=== PATIENT | male | born 1980 | race Caucasian/White ===

== ENCOUNTER 2024-01-10 14:56 | Emergency (ER) | payer BC, SELFPAY ==
[2024-01-10 15:08] VITALS: BP 135/84; PULSE 76; TEMP 37.1; O2SAT 100; BMI 19.8
--- NOTE | 2024-01-10 15:25 | CT_ITS ---
The [address] [address] Patient Name: MOHINDER NINA MRN: [id number] date: 1980 Sex: M Assigned Patient Location: ER Current Patient Location: ED.MAIN Accession/Order Number: [id number] Exam Date: 01/10/2024 15:54 Report Date: 01/10/2024 16:22 At the request of: LAUREEN SALVADOR Procedure: CT sinus w con EXAM: CT scan of the sinuses with IV contrast contrast. Dose reduction technique used: Automated exposure control and/or adjustment of the mA and/or kV according to patient size and/or use of iterative reconstruction technique. REASON FOR EXAM: Left retro-orbital pain COMPARISON: None FINDINGS: Prominent bilateral maxillary sinus mucosal thickening/secretions, suggestion of a right maxillary sinus air-fluid level. Mucosal thickening/secretions to a lesser extent throughout the remainder of the paranasal sinuses. Erosive changes/defect to the anterior nasal septum soft tissue thickening along the anterior nasal septum. Mandibular and maxillary periapical abscesses. No orbital inflammatory changes. No soft tissue fluid collection or abscess. No soft tissue emphysema. Remainder unremarkable. CT/CT sinus w con IMPRESSION: 1. Extensive paranasal sinus disease, acute sinusitis cannot be excluded. 2. Erosion/defect of the anterior nasal septum with focal soft tissue thickening anteriorly, correlate clinically. 3. Periapical abscesses. Electronically authenticated by: RICCO GRECO Date: 01/10/2024 16:22
--- NOTE | 2024-01-10 15:26 | ED.GENADUL1 ---
HPI HPI - General Adult General Chief complaint: Headache Stated complaint: HEADACHE Time Seen by Provider: 01/10/24 15:01 Source: patient and family Mode of arrival: walk-in Limitations: no limitations History of Present Illness HPI narrative: Have aPatient here with his family complaining of a left-sided retro-orbital headache. It began on January 07 and she is gradually gotten worse. It was pretty severe yesterday but he toughed it out and decided come in today instead. He has noticed a little bit of crusting of his eyelid but he says his eyeball does not feel like a foreign body sensation and it is not particularly tender. He is not had previous sinus infections. He has a number of bad teeth he thought it might be a dental infection on that side. He does not have a head. He is not diabetic. He is not alcoholic he has no history of immunocompromising diseases and he denies any serious infections in the past. He is not on any antibiotics. Does not have any visual symptomatology such as diplopia or loss of visual field. Does not have pain when he looks left and right. Related Data Home Medications ?Medication ?Instructions ?Recorded ?Confirmed amiodarone 200 mg tablet 200 mg PO DAILY 01/10/24 01/10/24 aspirin 81 mg tablet,delayed 81 mg PO DAILY 01/10/24 01/10/24 release atorvastatin 40 mg tablet 40 mg PO DAILY 01/10/24 01/10/24 lisinopril 10 mg tablet 10 mg PO DAILY 01/10/24 01/10/24 meloxicam 15 mg tablet 15 mg PO DAILY 01/10/24 01/10/24 metoprolol succinate 25 mg 25 mg PO DAILY 01/10/24 01/10/24 tablet,extended release 24 hr Allergies Allergy/AdvReac Type Severity Reaction Status Date / Time No Known Drug Allergies Allergy Verified 01/10/24 15:07 Opioid HPI Opioid Management Most Recent Opioid Data: No Data to Display Exam Narrative Exam Narrative: Patient very pleasant GCS 15 no evidence of confusion, no short or long-term memory loss with questioning. She oriented x 3. He has no neck pain. HEENT examination shows his left TM to be normal. There is no facial swelling. There is no rhinitis. Oral cavity is normal. The upper eyelid slightly puffy on the left side. There is no proptosis. Palpation of the globe reproduces no pain or discomfort and pressures are felt to be clinically stable. Extraocular muscles are normal with no tenderness with lateral or medial gaze. There is no conjunctivitis. There is no hemorrhage or hyphema noted on the examination he has no visual complaints. The oral cavity is not in good repair much the teeth have some issues with gingival disease. He does not have any carotid bruits. Neurological examination shows cranial nerves motor and sensory examination to be completely normal. Constitutional Vital Signs, click to edit/add: Last Vital Signs Temp 98.8 F 01/10/24 15:08 Pulse 70 01/10/24 16:39 Resp 18 01/10/24 16:39 BP 150/75 H 01/10/24 16:39 Pulse Ox 98 01/10/24 16:39 O2 Del Method Room Air 01/10/24 15:08 Course Vital Signs Vital signs: Vital Signs Temperature 98.8 F 01/10/24 15:08 Pulse Rate 76 01/10/24 15:08 Respiratory Rate 18 01/10/24 15:08 Blood Pressure 135/84 01/10/24 15:08 Pulse Oximetry 100 01/10/24 15:08 Oxygen Delivery Method Room Air 01/10/24 15:08 Temperature 98.8 F 01/10/24 15:08 Pulse Rate 70 01/10/24 16:39 Respiratory Rate 18 01/10/24 16:39 Blood Pressure 150/75 H 01/10/24 16:39 Pulse Oximetry 98 01/10/24 16:39 Oxygen Delivery Method Room Air 01/10/24 15:08 Medical Decision Making MDM Narrative Medical decision making narrative: This was not abrupt onset , more of a chronic headache. He has a lot of sinusitis symptoms so a CT scan will be done. My preliminary review of this confirms that with pansinusitis especially on the left side. The radiologist also says there is soft tissue swelling near the anterior nasal septum. There is no evidence of retro-orbital mass abscess or infectious process. When I reevaluate this patient I do not see a intranasal abscess but high in the posterior nasal orifice bilaterally there is a whitish discoloration and tissue. He confirms that 1520 years ago he was snorting a lot of cocaine. He also confirms that he has been swimming in the river recently. I will recontact his primary care doctor for follow-up arrangement him to start him on intravenous Rocephin. I did speak with Dr. Poe his primary care doctor and will see him on Saturday he agrees with Augmentin. He also suggested short-term steroid use. Lab Data Labs: Lab Results 01/10/24 Range/Units 15:39 WBC 19.1 H (4.0-11.0) 10^3/uL RBC 4.09 L (4.70-6.10) 10^6/uL Hgb 12.5 L (14.0-18.0) g/dL Hct 38.3 L (42.0-54.0) % MCV 93.6 (80.0-94.0) fL MCH 30.6 (25.9-34.0) pg MCHC 32.6 (29.9-35.2) g/dL RDW 13.1 (11.0-15.0) % Plt Count 321 (150-450) 10^3/uL MPV 8.6 L (9.5-13.5) fL Seg Neuts % (Manual) 78.0 Lymphocytes % (Manual) 14.0 L (20.5-60.0) % Monocytes % (Manual) 8.0 (1.7-12.0) % Eosinophils % (Manual) 0.0 L (0.9-7.0) % Basophils % (Manual) 0.0 L (0.2-2.0) % Neutrophils # (Manual) 14.89 H (1.4-6.5) 10^3/uL Lymphocytes # (Manual) 2.67 (1.20-3.80) 10^3/uL Monocytes # (Manual) 1.52 H (0.30-0.80) 10^3/uL Eosinophils # (Manual) 0.00 (0.00-0.70) 10^3/uL Basophils # (Manual) 0.00 (0.00-0.10) 10^3/uL Discharge Plan Discharge Chief Complaint: Headache Clinical Impression: Sinusitis Time of Disposition Decision: 05:45 Prescriptions / Home Meds: No Action amiodarone 200 mg tablet 200 mg PO DAILY aspirin 81 mg tablet,delayed release (DR/EC) 81 mg PO DAILY atorvastatin 40 mg tablet 40 mg PO DAILY lisinopril 10 mg tablet 10 mg PO DAILY meloxicam 15 mg tablet 15 mg PO DAILY metoprolol succinate 25 mg tablet extended release 24 hr 25 mg PO DAILY Print Language: [place] Additional Instructions: Start Augmentin today/call and see Dr. Poe Saturday return for any problems or if worse Referrals: Rony Poe MD [Primary Care Provider] - 1 week
--- NOTE | 2024-01-10 15:43 | PC.NURSE ---
pt c/o left eye redness and swelling that started /. pt also c/o headache stating headache started than eye swelling.
[2024-01-10 15:54] LABS: Hematocrit 38.3 % (42.0-54.0); Hemoglobin 12.5 g/dL (14.0-18.0); Mean Corpuscular HGB Conc 32.6 g/dL (29.9-35.2); Mean Corpuscular Hemoglobin 30.6 pg (25.9-34.0); Mean Corpuscular Volume 93.6 fL (80.0-94.0); Mean Platelet Volume 8.6 fL (9.5-13.5); Platelet Count 321 10^3/uL (150-450); Red Blood Count 4.09 10^6/uL (4.70-6.10); Red Cell Distribution Width 13.1 % (11.0-15.0); White Blood Count 19.1 10^3/uL (4.0-11.0)
[2024-01-10 16:39] VITALS: BP 150/75; PULSE 70; O2SAT 98
[2024-01-10 16:51] LABS: Lymphocytes Absolute Manual 2.67 10^3/uL (1.20-3.80); Monocytes Absolute Manual 1.52 10^3/uL (0.30-0.80); Segmented Neut Absolute Manual 14.89 10^3/uL (1.4-6.5)
[2024-01-10] MEDS: CEFTRIAXONE 1,000 MG in 0.9 % SODIUM CHLORIDE 50 ML 100 MG IV (17:01)
== END 2024-01-10 18:02 | disposition home or self-care (01) ==
PROVIDERS: Emergency Provider Emergency Medicine Emergency Medical Services; PCP Family Medicine
DX: J32.9 Chronic sinusitis, unspecified (principal)
CPT/HCPCS: 36415; 70487; 85007; 85027; 96365; 99285; J0696; Q9967